=== PATIENT | female | born 1955 | race Caucasian/White ===

== ENCOUNTER 2016-07-04 05:19 | Emergency (ER) | payer BC ==
[2016-07-04] MEDS ORDERED: OPTIRAY 350 100 ML VIAL HMH IV ONE (05:20)
[2016-07-04] MEDS ORDERED: DUONEB INH ONE (06:21)
[2016-07-04] MEDS ORDERED: KETOROLAC 30 MG/ML VIAL ONE (06:22)
[2016-07-04] MEDS ORDERED: ONDANSETRON 4 MG VIAL ONE (06:22)
[2016-07-04] MEDS ORDERED: ALBUTEROL HFA INH ONE (07:56)
== END 2016-07-04 08:13 | disposition home or self-care (01) ==
LOC: ER 05:19
DX: J15.9 Unspecified bacterial pneumonia (principal); M94.0 Chondrocostal junction syndrome [Tietze]
CPT/HCPCS: 36415; 71010; 71260; 80053; 82550; 82553; 83735; 84484; 85025; 85610; 85730; 93005; 94640; 96374; 96375